=== PATIENT | male | born 1995 | race Caucasian/White ===

== ENCOUNTER 2022-12-10 21:11 | Emergency (ER) | payer OTHER ==
[2022-12-10 21:31] VITALS: BP 145/85; PULSE 94
[2022-12-10] MEDS ORDERED: Acetaminophen/HYDROcodone 325-10 MG Tab PO ONE (23:39)
== END 2022-12-11 00:38 | disposition home or self-care (01) ==
LOC: JD.ED 21:11
DX: S92.254A Nondisplaced fracture of navicular [scaphoid] of right foot, initial encounter for closed fracture (principal); W21.05XA Struck by basketball, initial encounter; Y93.67 Activity, basketball
CPT/HCPCS: 73630; 99283; A9270